=== PATIENT | female | born 1990 | race Caucasian/White ===

== ENCOUNTER 2019-07-01 02:15 | Outpatient (CLI) | payer BC, SELFPAY ==
[2019-07-01 08:55] LABS: HCT 34.1 % (36.0-46.0); HGB 11.3 g/dL (12.0-15.5); Mean Corp. HGB Concentration 33.1 g/dL (32.0-36.0); Mean Corpuscular Volume 99.7 fL (80-95); Mean Platelet Volume 8.5 fL (8.0-11.0); Platelet Count 262 x1000/uL (130-400); RBC 3.42 m/cumm (4.00-5.20); RBC Distribution Width 13.3 % (11.7-14.6); White Blood Cell Count 9.09 k/cumm (4.4-10.8)
[2019-07-01 09:05] LABS: Glucose,1 Hr (Glucola) 89 mg/dL (80-140)
--- NOTE | 2019-07-01 10:30 | DI.US_ITS ---
EXAM: US OB ESTRELLITA WEIGHT CLINICAL HISTORY: hx low-lying placenta, measure placental location, Z34.90 TECHNIQUE: Ultrasound performed using standard protocol. COMPARISON: No exams were available for comparison FINDINGS: Ob ultrasound was performed utilizing 3rd trimester protocol. The patient has a history of low lying placenta. Placenta is anterior and lies about 5 cm above the internal cervical os and there is no e vidence of low-lying placenta or placenta previa. There is a normal quantity of amniotic fluid visua lly and the ESTRELLITA is 21. biometry is consistent with gestational age of 28 weeks 0 days and EDC of 6 16 20. Estimated f etal weight 1147 grams which is at the 51st percentile for predicted gestational age cardiac rate is 143 BPM. IMPRESSION: DATA REPOSITORY:
[2019-07-02 10:06] LABS: Hepatitis C Ab w Rflx HCV PCR Negative (Negative)
== END 2019-07-01 02:35 ==
PROVIDERS: Advanced Practice Midwife; Visit Provider Obstetrics & Gynecology Gynecology
DX: O44.43 Low lying placenta NOS or without hemorrhage, third trimester (principal); Z3A.28 28 weeks gestation of pregnancy
CPT/HCPCS: 36415; 76816; 82950; 85027; 86803; 86850; 86900; 86901

== ENCOUNTER 2019-08-18 10:30 | Observation (INO) | payer OTHER, SELFPAY ==
[2019-08-18] MEDS: Betamet Acet/Betamet Na Ph Inj. 30 MG/5 ML 12 MG IM (11:15)
[2019-08-18] MEDS: Lactated Ringers 1,000 ML 125 ML IV (11:15)
[2019-08-18] MEDS: Penicillin G POT. 5,000,000 UNITS in Normal Saline 100 ML 200 UNITS IVPB (11:35)
[2019-08-18] MEDS: Normal Saline Flush 10 ML SYR IVP (11:58)
== END 2019-08-18 12:45 | disposition short-term general hospital (02) ==
PROVIDERS: Admitting Provider Advanced Practice Midwife; Visit Provider Advanced Practice Midwife
DX: O42.913 Preterm premature rupture of membranes, unspecified as to length of time between rupture and onset of labor, third trimester (principal); Z3A.34 34 weeks gestation of pregnancy; O60.03 Preterm labor without delivery, third trimester
CPT/HCPCS: 96372; 59025; G0378; J0702; J2540